=== PATIENT | male | born 1950 | race Asian ===

== ENCOUNTER 2017-05-01 21:16 | Emergency (ER) | payer MEDICAID, OTHER ==
[~2017-05-01] VITALS: Ht 165.1 cm; Wt 74.4 kg
[2017-05-01 21:28] VITALS: BP 128/72
[2017-05-02] MEDS ORDERED: IBUPROFEN 600 MG TAB PO ONE (01:30)
== END 2017-05-02 01:54 | disposition home or self-care (01) ==
LOC: ER 21:19
DX: G89.29 Other chronic pain (principal); M25.522 Pain in left elbow
CPT/HCPCS: 73080; 73200

== ENCOUNTER 2017-05-19 21:15 | Observation (INO) | payer OTHER ==
[~2017-05-19] VITALS: Ht 162.6 cm; Wt 63.5 kg
[2017-05-19 21:50] LABS: Urine RBC None Seen /hpf (0 - 3)
[2017-05-19 21:51] LABS: Basophils # (auto) 0 uL; Basophils % (auto) 0.6 % (0.0-2.0); CONDITION Y; Eosinophils # (auto) 0.2 uL; Eosinophils % (auto) 4.4 % (0.0-7.0); Hematocrit 40.1 % (41.0-53.0); Hemoglobin 13.4 g/dL (13.5-17.5); Lymphocytes # (auto) 2.2 uL; Lymphocytes % (auto) 40.3 % (10.0-50.0); Mean Corpuscular Hemoglobin 29.9 pg (28.0-32.0); Mean Corpuscular Hgb Conc. 33.4 g/dL (32.0-36.0); Mean Corpuscular Volume 89.6 fL (80.0-100.0); Mean Platelet Volume 8.4 fL (7.4-10.4); Monocytes # (auto) 0.4 uL; Monocytes % (auto) 7.9 % (0.0-12.0); Neutrophils # (auto) 2.6 uL; Neutrophils % (auto) 46.8 % (37.0-80.0); Platelet Count (auto) 233 10^3/uL (140-450); Red Cell Distribution Width 13.1 % (11.6-16.0); White Blood Cell 5.6 10^3/uL (4.4-10.8)
[2017-05-19 21:59] LABS: Urine Bilirubin Negative (Negative); Urine Blood Negative /uL (Negative); Urine Color Colorless (Yellow); Urine Glucose 4+ mg/dL (Normal); Urine Ketone Negative (Negative); Urine Nitrite Negative (Negative); Urine Urobilinogen Normal (Negative); Urine pH 5.5 (5.0-8.0)
[2017-05-19 22:00] LABS: Albumin 3.6 g/dL (3.4-5.0); Anion Gap 8 (5-15); Aspartate Aminotransferase 22 U/L (15-37); BUN/Creatinine Ratio 24.7; Blood Urea Nitrogen 24 mg/dL (7-18); Calcium 8.1 mg/dL (8.5-10.1); Carbon Dioxide 26 mmol/L (21-32); Chloride 109 mmol/L (98-107); GFR African American 99 mL/min; GFR Non-African American 82 mL/min; Glucose 211 mg/dL (74-106); Magnesium 2.6 mg/dL (1.6-2.6); Sodium 143 mmol/L (136-145)
[2017-05-19 22:03] LABS: Alkaline Phosphatase 87 U/L (45-117); Bilirubin, Total 0.5 mg/dL (0.2-1.0); Total Protein 6.8 g/dL (6.4-8.2)
[2017-05-19 22:05] LABS: Acetaminophen < 2.0 ug/mL (10-30); Salicylate < 1.7 mg/dL (2.8-20.0)
[2017-05-20] MEDS ORDERED: LORazepam 0.5 MG TAB PO ONE (08:00)
[2017-05-20] MEDS ORDERED: risperiDONE 1 MG TAB PO ONE (10:15)
[2017-05-20 10:27] VITALS: BP 151/55
== END 2017-05-20 12:51 | disposition home or self-care (01) | DRG 885 ==
LOC: ER 21:20 → OVERFLOW 21:21 → ER 05-20 12:51
PROVIDERS: ADMIT Emergency Medicine; ATTEND Emergency Medicine
DX: F20.9 Schizophrenia, unspecified (principal); E11.9 Type 2 diabetes mellitus without complications; M79.602 Pain in left arm; F41.0 Panic disorder [episodic paroxysmal anxiety]
CPT/HCPCS: 36415; 70450; 80053; 80307; 80320; 80329; 81001; 82962; 83735; 84443; 85025; 99285; G0378

== ENCOUNTER 2017-07-08 19:15 | Emergency (ER) | payer OTHER ==
[~2017-07-08] VITALS: Ht 165.1 cm; Wt 66.9 kg
[2017-07-09] MEDS ORDERED: cefTRIAXone SOD 1,000 MG VL IM ONE (00:30)
[2017-07-09 00:41] VITALS: BP 102/69
[2017-07-09] MEDS ORDERED: TETANUS-DIPTH-ACEL PERTUSSIS 0.5ML SYRG IM ONE (00:45)
== END 2017-07-09 01:04 | disposition home or self-care (01) ==
LOC: ER 19:15
DX: S60.571A Other superficial bite of hand of right hand, initial encounter (principal); E11.9 Type 2 diabetes mellitus without complications; Z23 Encounter for immunization; W54.0XXA Bitten by dog, initial encounter; Y93.89 Activity, other specified; Y99.8 Other external cause status; Y92.89 Other specified places as the place of occurrence of the external cause
CPT/HCPCS: 82962; 90471; 90715; 96372; 99284; J0696

== ENCOUNTER 2017-08-27 20:41 | Emergency (ER) | payer OTHER ==
[~2017-08-27] VITALS: Ht 170.2 cm; Wt 64.9 kg
[2017-08-27] MEDS ORDERED: MAGNESIUM CITRATE SOLUTION 300 ML BTL PO ONE (22:00)
[2017-08-27] MEDS ORDERED: SODIUM CHLORIDE 0.9% 2,000 ML IV ONE (22:54)
[2017-08-28 01:04] LABS: Basophils # (auto) 0.1 uL; Basophils % (auto) 0.9 % (0.0-2.0); Eosinophils # (auto) 0.3 uL; Eosinophils % (auto) 4.8 % (0.0-7.0); Hematocrit 40.9 % (41.0-53.0); Lymphocytes # (auto) 2.4 uL; Lymphocytes % (auto) 39.2 % (10.0-50.0); Mean Corpuscular Hemoglobin 30.5 pg (28.0-32.0); Mean Corpuscular Hgb Conc. 34.3 g/dL (32.0-36.0); Mean Corpuscular Volume 88.9 fL (80.0-100.0); Mean Platelet Volume 7.8 fL (6.9-10.8); Monocytes # (auto) 0.5 uL; Monocytes % (auto) 8.9 % (0.0-12.0); Neutrophils # (auto) 2.8 uL; Neutrophils % (auto) 46.2 % (37.0-80.0); Nucleated Red Blood Cells % 0.1 %; Platelet Count (auto) 202 10^3/uL (140-450); White Blood Cell 6.2 10^3/uL (4.4-10.8)
[2017-08-28 01:21] LABS: Albumin 3.6 g/dL (3.4-5.0); Calcium 8.7 mg/dL (8.5-10.1); Potassium 3.7 mmol/L (3.5-5.1)
[2017-08-28 01:22] LABS: INR 0.9 (0.9-1.15); Partial Thromboplastin Time 25.8 sec (22.64-33.71); Prothrombin Time 9.8 sec (9.37-12.3)
[2017-08-28 01:24] LABS: BUN/Creatinine Ratio 24.7
[2017-08-28 01:26] LABS: Bilirubin, Total 0.4 mg/dL (0.2-1.0)
[2017-08-28 06:12] VITALS: BP 150/70
== END 2017-08-28 06:44 | disposition home or self-care (01) ==
LOC: ER 20:41
DX: F60.0 Paranoid personality disorder (principal); E11.9 Type 2 diabetes mellitus without complications
CPT/HCPCS: 36415; 70450; 71010; 72131; 74000; 80053; 82962; 85025; 85610; 85730; 93005; 96360; 99285; J7030